=== PATIENT | male | born 1975 | race Caucasian/White ===

== ENCOUNTER 2023-03-12 03:01 | Emergency (ER) | payer OTHER ==
[2023-03-12 03:06] VITALS: BP 152/100; PULSE 92; RESP 16; TEMP 99.5; BMI 38.4
== END 2023-03-12 04:37 | disposition home or self-care (01) ==
LOC: JER 03:01
DX: L97.319 Non-pressure chronic ulcer of right ankle with unspecified severity (principal); E11.622 Type 2 diabetes mellitus with other skin ulcer
CPT/HCPCS: 99282-25